=== PATIENT | female | born 1975 | race Hispanic/Latino ===

== ENCOUNTER 2021-01-22 13:34 | Observation (INO) | payer SELFPAY ==
[~2021-01-22] VITALS: Ht 162.6 cm; Wt 85.0 kg
--- NOTE | 2021-01-22 14:07 | NUR ---
PT ESCORTED TO ROOM 13.
[2021-01-22 14:22] LABS: IMMATURE GRANULOCYTES 0.2 % (0.0-5.0); MEAN CELL VOLUME 79.2 fL CALC (80.0-100.0); MEAN CORPUSCULAR HGB 25.1 pG CALC (26.0-32.0); MEAN CORPUSCULAR HGB CONC 31.7 g/dL CAL (32.0-36.0); NEUT# 11.2 thou/uL (2.00-7.15); RED BLOOD COUNT 5.18 mill/uL (4.20-5.60); RED CELL DISTRI WIDTH 14.9 % (11.5-15.5)
[2021-01-22] MEDS ORDERED: ADVIL200 MG PO (14:34)
[2021-01-22 14:39] LABS: ALKALINE PHOSPHATASE 134 u/l (38-126); BUN 14 mg/dL (7-17); BUN/CREATININE RATIO 19 (12-20 (CALC)); CHLORIDE 102 mmol/l (95-108); CREATININE 0.7 mg/dL (0.5-1.0); GFR > 60 ML/MIN (>=60 (CALC)); GFR FOR AFR.AMER. > 60 ML/MIN (>=60 (CALC)); LIPASE 90 u/l (23-300); SGOT/AST 30 u/l (14-36); SODIUM 137 mmol/l (137-146)
[2021-01-22 14:41] LABS: ALBUMIN 4.5 g/dL (3.2-5.0); ANION GAP 13 (6-22 (CALC)); BILIRUBIN, TOTAL 0.7 mg/dL (0.0-1.4); CARBON DIOXIDE 26 mmol/l (22-30); TOTAL PROTEIN 8.3 g/dL (6.3-8.2)
[2021-01-22 15:55] LABS: URINE BILIRUBIN - DIPSTICK NEGATIVE (NEGATIVE); URINE BLOOD DIPSTICK SMALL (NEGATIVE); URINE COLOR YELLOW; URINE GLUCOSE - DIPSTICK NEGATIVE (NEGATIVE); URINE KETONE TRACE mg/dL (NEGATIVE); URINE LEUK ESTERASE NEGATIVE (NEGATIVE); URINE PH 7.5 (4.5-8.0); URINE PROTEIN - DIPSTICK NEGATIVE (NEG-TRACE); URINE SPECIFIC GRAVITY 1.015; URINE UROBILINOGEN - DIPSTICK 0.2 E.U./dL (0.2)
[2021-01-22 16:05] LABS: URINE NITRITE - DIPSTICK NEGATIVE (Negative)
[2021-01-22 16:10] LABS: URINE SQUAMOUS EPITHELIAL CELL FEW EPI/hpf (0-FEW); URINE WBC 0-2 WBC/hpf (0-5)
[2021-01-22 19:20] VITALS: BP 136/90
--- NOTE | 2021-01-22 19:52 | NUR ---
Transfer Information Transferred To: [place] Report Given to: KRISTYN Transported by: [facility] [employer] Other Transported with: Nurse Transporter [employer]2 X Assistant Project Manager PT TRANSPORTED UPSTAIRS TO ROOM 268. REPORT CALLED TO KRISTYN. ESCORTED BY WITH BELONGINGS.
--- NOTE | 2021-01-22 20:00 | NUR ---
PATIENT ADMITTED FROM ER VIA WHEELCHAIR WITH ER STAFF IN ATTENDANCE. PATIENT ABLE TO TRANSFER TO THE BED BY HERSELF. PATIENT IS AWAKE ALERT AND ORIENTEDX3. PATIENT IS KOREAN SPEAKING BUT DOES UNDERSTAND MOST INDONESIAN. IS HERE AT BEDSIDE. PATIENT WITH NG TUBE IN PLACE-PLACEMENT WAS CHECKED AND NOT IN HER STOMACH. NGTUBE ADJUSTED AND CONFIRMED USING AIR AND STETHOSCOPE. NG TUBE RIGHT NARE-TO LIWS-DRAINING GREENISH COLORED FLUID. ABD IS SOFT WITH HYPOACTIVE BS. PATIENT IS NPO AT THIS TIME. PATIENT STATES THAT HER PAIN STARTED THIS MORNING AFTER EATING PAPAYA FOLLOWED BY N/V. LAST VOMITTED IN THE ER. PATIENT WITH IV SITE TO LAC-IVF NS HUNG AND INFUSING AT 150CC/HR. SITE IS HEALTHY WITH GOOD BLOOD RETURN. PATIENT ORIENTED TO ROOM AND SURROUNDINGS. INSTRUCTED ON SAFETY PRECAUTIONS AND NPO STATUS. CALL LIGHT IN REACH. WILL CONT TO MONITOR.
--- NOTE | 2021-01-22 22:58 | NUR ---
PATIENT RESTING IN BED AT THIS TIME WITH NG TUBE PATENT AND DRAINING GREENISH COLORED FLUID. IVF NS PATENT AND INFUSING VIA LEFT AC SITE AT 150CC/HR. SITE REMAINS HEALTHY WITH GOOD BLOOD RETURN. MEDICATED FOR LEFT SIDED ABD PAIN 9/10 ON PAIN SCALE WITH MORPHINE 2MG IVP AND WITH ZOFRAN 4MG IVP FOR NAUSEA. SAFETY PRECAUTIONS REINFORCED. CALL LIGHT IN REACH. WILL CONT TO MONITOR.
--- NOTE | 2021-01-23 | NUR ---
PATIENT RESTING IN BED-SOME RELIEF FROM ZOFRAN AND MORPHINE GIVE. NG TUBE REMAINS TO LIWS DRAING GREEN FLUID. IVF NS PATENT AND INFUSING VIA LAC SITE AT 150CC/HR. CALL LIGHT IN REACH. WILL CONT TO MONITOR.
--- NOTE | 2021-01-23 01:46 | NUR ---
PATIENT IS REATING IN BED-NG TUBE CONT TO DRAIN GREEN FLUID. IVF PATENT AND INFUSING VIA LAC SITE AT 150CC/HR. C/O ABD AND RIGHT EAR PAIN-6/10 ON PAIN SCALE. MEDICATED WITH MORPHINE 2MG IVP ORDERED FOR PAIN. REMAINS NPO AT THIS TIME. CALL LIGHT IN REACH. WILL CONT TO MONITOR.
[2021-01-23 04:00] VITALS: BP 120/81
[2021-01-23 05:19] LABS: ALKALINE PHOSPHATASE 98 u/l (38-126); ANION GAP 9 (6-22 (CALC)); BILIRUBIN, TOTAL 0.5 mg/dL (0.0-1.4); BUN 10 mg/dL (7-17); BUN/CREATININE RATIO 13 (12-20 (CALC)); CARBON DIOXIDE 26 mmol/l (22-30); CHLORIDE 106 mmol/l (95-108); CREATININE 0.8 mg/dL (0.5-1.0); GFR > 60 ML/MIN (>=60 (CALC)); GFR FOR AFR.AMER. > 60 ML/MIN (>=60 (CALC)); POTASSIUM 3.7 mmol/l (3.5-5.1); SGOT/AST 18 u/l (14-36); SODIUM 138 mmol/l (137-146)
[2021-01-23 05:20] LABS: HEMATOCRIT 33.6 % (37.0-47.0); HEMOGLOBIN 10.9 g/dl (12.0-16.0); MEAN CELL VOLUME 78.7 fL CALC (80.0-100.0); MEAN CORPUSCULAR HGB 25.5 pG CALC (26.0-32.0); MEAN CORPUSCULAR HGB CONC 32.4 g/dL CAL (32.0-36.0); RED BLOOD COUNT 4.27 mill/uL (4.20-5.60); RED CELL DISTRI WIDTH 15.2 % (11.5-15.5)
[2021-01-23 05:21] LABS: ALBUMIN 3.3 g/dL (3.2-5.0); TOTAL PROTEIN 6.3 g/dL (6.3-8.2)
--- NOTE | 2021-01-23 06:17 | NUR ---
PATIENT UP TO THE BSC TO VOID AND THEN BACK TO BED. PATIENT WITH NGTUBE INTACT AND CONT TO DRAIN GREEN FLUID-TOTAL OUTPUT FOR THIS SHIFT IS 600CC. IVF NS PATENT AND INFUSING VIA LAC SITE AT 150CC/HR. PATIENT MEDICATED FOR NAUSEA WITH ZOFRAN 4MG IVP AND FOR PAIN-6/10 PAIN SCALE WITH MORPHINE 2MG IVP. CALL LIGHT IN REACH. WILL CONT TO MONITOR. REMAINS NPO AT THIS TIME.
--- NOTE | 2021-01-23 06:45 | NUR ---
REPORT FROM RADHA MOSES. ASSUMED PT CARE.
--- NOTE | 2021-01-23 07:15 | NUR ---
PT NOTES RESTING IN BED IN SEMI-FOWLERS POSITION. NO APPARENT DISTRESS NOTED. ALERT AND ORIENTED X4. PT DENIES ANY PAIN OR NAUSEA AT THIS TIME. NG TUBE IN RIGHT NARE TO LIS WITH GREEN OUTPUT NOTED. IV SITE APPEARS HEALTHY WITH IVF INFUSING. DISCUSS POC AND NPO, PT VERBALIZED UNDERSTANDING. CALL LIGHT WITHIN REACH. WILL CONTINUE TO MONITOR.
[2021-01-23 07:38] VITALS: BP 136/87
--- NOTE | 2021-01-23 11:49 | NUR ---
PT C/O ABD PAIN, ACTIVE BOWEL SOUNDS NOTED. NG TUBE REMAINS IN RIGHT NARE TO LIS WITH LARGE AMOUNTS OF OUTPUT. MEDICATED AT THIS TIME. PT DENIES ANY OTHER WANTS OR NEEDS. BSC EMTPIED OF 500ML CLEAR YELLOW OUTPUT. CALL LIGHT WITHIN REACH. WILL CONTINUE TO MONITOR.
--- NOTE | 2021-01-23 14:38 | NUR ---
PT C/O NAUSEA. NG TUBE IN RIGHT NARE TO LIS. LARGE AMOUNT OF GREEN OUTPUT THROUGHOUT SHIFT. ORAL CONTRAST ORDERED BY DR BARRETO. TO EARLY FOR ANOTHER ZOFRAN ADMINISTRATION. DR KENDRICK NOTIFIED. ONE TIME ORDER FOR PHENERGAN 12.5 IVPB. WILL ADMINISTER WHEN PROFILED BY PHARMACY THEN ADMINISTER ORAL CONTRAST WHEN NAUSEA RESOLVES. INFORMED PT AT THIS TIME, PT VERBALIZED UNDERSTANDING.
--- NOTE | 2021-01-23 15:20 | NUR ---
FIRST DOSE OF GASTROGRAFIN ADMINISTERED WITH JUICE.
[2021-01-23 15:50] VITALS: BP 130/84
--- NOTE | 2021-01-23 15:52 | NUR ---
SECOND DOSE OF GASTROGRAFIN WITH JUICE. PT TOLERATING WELL.
--- NOTE | 2021-01-23 18:13 | NUR ---
PT RETURNED FROM CT. PT AMBULATED TO BATHROOM WITH STEADY GAIT. PT REPORTS SMALL LOOSE BROWN BM AT THIS TIME.
[2021-01-23 19:00] VITALS: BP 114/78
--- NOTE | 2021-01-23 19:49 | NUR ---
PATIENT RESTING IN BED AT THIS TIME-NGT REMOVED ORDERED. PATIENT INSTRUCTED REGUARDING ADVANCING TO LIQUID DIET-VERBALIZES UNDERSTANDING. IVF NS PATENT AND INFUSING VIA LAFT AC SITE AT 150CC/HR. SITE REMAINS HEALTHY. SAFETY PRECAUTIONS REINFORCED. CALL LIGHT IN REACH. WILL CONT TO MONITOR.
--- NOTE | 2021-01-23 23:55 | NUR ---
PATIENT RESTING IN BED AT THIS TIME WITH NO COMPLAINTS. IVF NS PATENT AND INFUSING VIA LAC SITE AT 150CC/HR. ZOSYN HUNG ORDERED. CALL LIGHT IN REACH. WILL CONT TO MONITOR.
[2021-01-24 04:03] VITALS: BP 113/70
--- NOTE | 2021-01-24 04:36 | NUR ---
PATIENT RESTING IN BED AT THIS TIME-MORNING LAB WORK DRAWN. NO COMPLAINTS AT THIS TIME. IVF PATENT AND INFUSING VIA LAC SITE AT 150CC/HR. CALL LIGHT IN REACH. WILL CONT TO MONITOR.
[2021-01-24 05:12] LABS: HEMOGLOBIN 10.3 g/dl (12.0-16.0); MEAN CELL VOLUME 78.8 fL CALC (80.0-100.0); MEAN CORPUSCULAR HGB 25.4 pG CALC (26.0-32.0); MEAN CORPUSCULAR HGB CONC 32.2 g/dL CAL (32.0-36.0); RED BLOOD COUNT 4.06 mill/uL (4.20-5.60); RED CELL DISTRI WIDTH 15.2 % (11.5-15.5)
[2021-01-24 05:33] LABS: ALKALINE PHOSPHATASE 88 u/l (38-126); ANION GAP 8 (6-22 (CALC)); BILIRUBIN, TOTAL 0.4 mg/dL (0.0-1.4); BUN 7 mg/dL (7-17); BUN/CREATININE RATIO 9 (12-20 (CALC)); CARBON DIOXIDE 26 mmol/l (22-30); CHLORIDE 107 mmol/l (95-108); CREATININE 0.8 mg/dL (0.5-1.0); GFR > 60 ML/MIN (>=60 (CALC)); GFR FOR AFR.AMER. > 60 ML/MIN (>=60 (CALC)); MAGNESIUM 2.1 mg/dL (1.6-2.3); POTASSIUM 3.5 mmol/l (3.5-5.1); SGOT/AST 18 u/l (14-36); SODIUM 137 mmol/l (137-146); TOTAL PROTEIN 5.9 g/dL (6.3-8.2)
[2021-01-24 08:00] VITALS: BP 114/79
--- NOTE | 2021-01-24 08:00 | NUR ---
PT AWAKE OUT OF BED IN THE RECLINER. STATES HAVING NO PAIN AT THIS TIME. PAPUA [place] IS PRIMARY LANGUAGE. ASSESSMENT PERFORMED AT THIS TIME: A&O X3, S1 AND S2 HEARD. LUNG SOUNDS ARE CLEAR UPPER/LOWER LOBE EQUALLY BILATERALLY. BOWEL SOUNDS ARE HEARD IN ALL 4 QUADRANTS. PT STATES NO PAIN WHEN ADBDOMEN IS PALPATED. PEDAL AND RADIAL PULSE ARE STRONG EQUALLY BILATERALLY. IV IS PATENT SHOWING NO SIGNS INFILTRATION. CALL LIGHT AND PERSONAL ITEMS ARE WITHIN REACH.
--- NOTE | 2021-01-24 10:51 | NUR ---
DR. ARCE AND INA CERDA AT [facility] DISCUSSING POC WITH PT
--- NOTE | 2021-01-24 11:03 | NUR ---
SPOKE WITH OR REGARDING MONIE REDOUGS WITH NEW POSITIVE RESULTS; PER ANESTHESIA PT STILL OKAY TO GO DOWN FOR PROCEDURE.
--- NOTE | 2021-01-24 12:00 | NUR ---
PT IN RECLINER EATING LUNCH. LUNCH WAS ADVANCED TO SOFT DIET. REPORTS NO PAIN AT THIS TIME. IV CONTINUES TO INFUSE WITH NO COMPLICATIONS. CALL LIGHT WITHIN REACH.
[2021-01-24] MEDS ORDERED: ONDANSETRON4 MG PO (13:41)
[2021-01-24 15:23] VITALS: BP 125/69
--- NOTE | 2021-01-24 16:04 | NUR ---
Discharge instructions given. Patient verbalizes understanding of same. Discharged in stable condition via WHEEL CHAIR to Home with family AND STAFF . All belongings sent with pt.
== END 2021-01-24 16:04 | disposition home or self-care (01) | DRG 392 ==
LOC: ED 13:34 → ED-I 16:10 → ED 16:31 → MS2 16:32
PROVIDERS: Family Medicine; ADMIT Internal Medicine; ATTEND Internal Medicine
DX: K52.9 Noninfective gastroenteritis and colitis, unspecified (principal); M51.16 Intervertebral disc disorders with radiculopathy, lumbar region; Z86.19 Personal history of other infectious and parasitic diseases; Z20.822 Contact with and (suspected) exposure to COVID-19
CPT/HCPCS: G0378; J1650; Q9967; S0164

== ENCOUNTER 2021-04-12 07:23 | Day surgery (SDC) | payer SELFPAY ==
[~2021-04-12] VITALS: Ht 162.6 cm; Wt 77.1 kg
[~2021-04-12 07:23] MED LIST: ADVIL200 MG PO; DIAZEPAM2 MG PO; OMEPRAZOLE20 MG PO; ONDANSETRON4 MG PO; TRAMADOL HCL50 MG PO; VITAMIN C500 MG PO
[2021-04-12 09:29] VITALS: BP 120/78
== END 2021-04-12 09:30 | disposition home or self-care (01) | DRG 392 ==
LOC: ENDO 07:23 → ORM 08:00 → ENDO 08:00
PROVIDERS: ATTEND Surgery
PROC: 0DJ08ZZ Inspection of Upper Intestinal Tract, Via Natural or Artificial Opening Endoscopic (ICD-10-PCS; principal; 2021-04-12)
DX: R10.12 Left upper quadrant pain (principal); K21.9 Gastro-esophageal reflux disease without esophagitis; Z79.899 Other long term (current) drug therapy

== ENCOUNTER → 2022-06-27 | Day surgery (SDC) | payer SELFPAY ==
[~2022-06-27] VITALS: Ht 162.6 cm; Wt 82.6 kg
[2022-06-27 11:36] VITALS: BP 121/84
== END | disposition home or self-care (01) | DRG 951 ==
LOC: ENDO 09:28
PROVIDERS: ATTEND Surgery
PROC: 0DJD8ZZ Inspection of Lower Intestinal Tract, Via Natural or Artificial Opening Endoscopic (ICD-10-PCS; principal; 2022-06-27)
DX: Z12.11 Encounter for screening for malignant neoplasm of colon (principal); K21.9 Gastro-esophageal reflux disease without esophagitis; Z80.0 Family history of malignant neoplasm of digestive organs